=== PATIENT | female | born 1990 | race Caucasian/White ===

== ENCOUNTER 2016-11-03 15:01 | Emergency (ER) | payer BC, MEDICAID ==
[2016-11-03 15:16] VITALS: BP 135/84
--- NOTE | 2016-11-03 16:16 | UC ---
Dental HPI - HPI Summary HPI Summary: 1) Two filling have fallen out of back molars in last couple weeks, pain has been constant since then. No fever or swelling. 2) bilat neck and upper back pain for the last couple weeks. 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 Denies weakness, numbness, or tingling in arms or hands. - History of Current Complaint Chief Complaint: UCUpperExtremity Stated Complaint: NECK & TEETH PAIN Time Seen by Provider: 11/03/16 15:50 Hx Obtained From: Patient Hx Last Menstrual Period: 09/29 ?: No Onset/Duration: Gradual Onset, Lasting Weeks Severity: Mild - Allergies/Home Medications Allergies/Adverse Reactions: Allergies Allergy/AdvReac Type Severity Reaction Status Date / Time Tramadol Allergy See Comment Verified 11/03/16 15:16 Home Medications: Home Medications Acetaminophen [Acetaminophen Extra Stren] 1,000 mg PO 11/03/16 [History] Ibuprofen [Advil] 400 mg PO 11/03/16 [History] PMH/Surg Hx/FS Hx/Imm Hx Endocrine History Of: Denies: Diabetes, Thyroid Disease Cardiovascular History Of: Denies: Cardiac Disorders, Hypertension Respiratory History Of: Reports: Asthma Denies: COPD GI/ History Of: Denies: Ulcer - Surgical History Surgical History: Yes Surgery Procedure, Year, and Place: C section, tonsillectomy - Family History Known Family History: Positive: None, Respiratory Disease - asthma - Social History Occupation: Employed Full-time Lives: With Family Alcohol Use: None Substance Use Type: None Smoking Status (MU): Heavy Every Day Tobacco Smoker Type: Cigarettes Amount Used/How Often: 7-10/day Have You Smoked in the Last Year: Yes - Immunization History Most Recent Influenza Vaccination: 2014 Most Recent Tetanus Shot: UTD Review of Systems Constitutional: Negative Skin: Negative Eyes: Negative ENT: Dental Pain Respiratory: Negative Cardiovascular: Negative Gastrointestinal: Negative Genitourinary: Negative Motor: Negative Neurovascular: Negative Musculoskeletal: Myalgia Neurological: Negative Psychological: Negative All Other Systems Reviewed And Are Negative: Yes Physical Exam Triage Information Reviewed: Yes Appearance: Well-Appearing, No Pain Distress, Obese Vital Signs: Initial Vital Signs Temp 97.9 F 11/03/16 15:11 Pulse 104 11/03/16 15:11 Resp 18 01/20/17 15:11 BP 135/84 11/03/16 15:11 Pulse Ox 100 11/03/16 15:11 Vital Signs Reviewed: Yes Eye Exam: Normal Eyes: Positive: Conjunctiva Clear ENT Exam: Normal ENT: Positive: Normal ENT inspection, Hearing grossly normal, Pharynx normal, TMs normal Dental: Positive: Dental Fracture @ - Molars #18 and 31 tender, missing fillings. No swelling or drainage. Pt does not have 3rd molars Neck: Positive: Supple, No Lymphadenopathy, Tenderness @ - paraspinal muscles Respiratory Exam: Normal Respiratory: Positive: Chest non-tender, Lungs clear, Normal breath sounds, No respiratory distress, No accessory muscle use Cardiovascular Exam: Normal Cardiovascular: Positive: RRR - high 90s, No Murmur Musculoskeletal: Positive: Strength Intact, ROM Intact, No Edema Neurological Exam: Normal Neurological: Positive: Alert, Muscle Tone Normal Psychological Exam: Normal Skin Exam: Normal Dental Complaint Course/Dx - Differential Dx/Diagnosis Provider Diagnoses: myofascial neck and back pain. dental pain #18 and #31 Discharge - Discharge Plan Condition: Stable Disposition: HOME Prescriptions: Acetaminop/Codeine 30 MG TAB* [Tylenol/Codeine 30 MG TAB*] 1 tab PO Q6H PRN #15 tab MDD 4 PRN Reason: Pain Cyclobenzaprine TAB* [Flexeril TAB*] 10 mg PO BEDTIME PRN #10 tab PRN Reason: pain Indomethacin CAP* [Indocin CAP*] 50 mg PO TID PRN #30 cap PRN Reason: Pain Patient Education Materials: Trigger Point Pain (ED), Toothache (ED) Referrals: Orville Cummings MD [Primary Care Provider] - Additional Instructions: Please follow up with your dentist next week as planned. If you develop significant swelling on one side of your face or if you have sudden increase in pain, please call and get me a message (Madina Pete NP) and I will call in an antibiotic for you. If you still have pain in your neck after 2 weeks, see your primary care provider.
== END 2016-11-03 16:25 | disposition home or self-care (01) ==
LOC: UCEAST 15:01
DX: M54.2 Cervicalgia (principal); K08.89 Other specified disorders of teeth and supporting structures; M54.6 Pain in thoracic spine; Z88.6 Allergy status to analgesic agent; F17.210 Nicotine dependence, cigarettes, uncomplicated
CPT/HCPCS: 99211; G0463

== ENCOUNTER 2016-11-09 00:08 | Emergency (ER) | payer BC, MEDICAID ==
[2016-11-09 00:18] VITALS: BP 145/95
[2016-11-09] MEDS ORDERED: oxyCODONE/Acetamin 5/325 MG* TAB PO ONE (01:16)
[2016-11-09] MEDS ORDERED: Ketorolac INJ* 60 MG/2 ML VIAL IM ONE (01:16)
[2016-11-09] MEDS ORDERED: Orphenadrine Citrate IV* 30 MG/ML 2 ML VIAL IM ONE (01:16)
--- NOTE | 2016-11-09 02:13 | ED ---
Renee Locke SooYoung, scribed for Abdullahi Avilez on 11/09/16 at 0115 . Neck Pain - HPI Summary HPI Summary: A 26 y/o F presents to ED with c/o acute on chronic neck pain ongoing for a few weeks. She states the injury was atraumatic, may have occurred while lifting heavy things at work. Pt was seen at [facility] [place] recently and given pain medication, and she saw the chiropractor today. The meds and the chiropractor have not alleviated her pain. Associated sx: sharp bilat temporal [place]; sore throat. Known two broken teeth. Pt is a smoker. - History of Current Complaint Chief Complaint: EDNeckComplaint Stated Complaint: NECK PAIN Time Seen by Provider: 11/09/16 01:04 Hx Obtained From: Patient Hx Last Menstrual Period: 09/29 Mechanism Of Injury: No Known Trauma Timing: Lasting Weeks Onset/Duration: Still Present Severity Currently: Moderate Pain Intensity: 7 Pain Scale Used: 0-10 Numeric Location: Diffuse - neck - Allergies/Home Medications Allergies/Adverse Reactions: Allergies Allergy/AdvReac Type Severity Reaction Status Date / Time Tramadol Allergy See Comment Verified 11/03/16 15:16 PMH/Surg Hx/FS Hx/Imm Hx Previously Healthy: No Endocrine/Hematology History: Denies: Hx Diabetes, Hx Thyroid Disease Cardiovascular History: Denies: Hx Hypertension Respiratory History: Reports: Hx Asthma Denies: Hx Chronic Obstructive Pulmonary Disease (COPD) GI History: Denies: Hx Ulcer Musculoskeletal History: Reports: Hx Back Problems - Surgical History Surgery Procedure, Year, and Place: C section, tonsillectomy Infectious Disease History: Yes Infectious Disease History: Denies: Hx Hepatitis, Hx Human Immunodeficiency Virus (HIV), History Other Infectious Disease, Traveled Outside the [place] in Last 30 Days - Family History Known Family History: Positive: Respiratory Disease - asthma - Social History Occupation: Employed Full-time Lives: Alone Alcohol Use: None Hx Substance Use: No Substance Use Type: Reports: None Hx Tobacco Use: Yes Smoking Status (MU): Heavy Every Day Tobacco Smoker Type: Cigarettes Amount Used/How Often: 7-10/day Have You Smoked in the Last Year: Yes Review of Systems Negative: Fever Positive: Other - pos: neck pain All Other Systems Reviewed And Are Negative: Yes Physical Exam Triage Information Reviewed: Yes Vital Signs On Initial Exam: Initial Vitals Temp Pulse Resp BP Pulse Ox 97.6 F 77 20 145/95 100 11/09/16 00:12 11/09/16 00:12 11/09/16 00:12 11/09/16 00:12 11/09/16 00:12 Vital Signs Reviewed: Yes Appearance: Positive: Well-Appearing, No Pain Distress Skin: Positive: Warm, Skin Color Reflects Adequate Perfusion, Dry Head/Face: Positive: Normal Head/Face Inspection Eyes: Positive: EOMI, ADELINE ENT: Positive: Normal ENT inspection Neck: Positive: Supple, Other: - CERVICAL SPASMS Respiratory/Lung Sounds: Positive: Clear to Auscultation, Breath Sounds Present Cardiovascular: Positive: RRR, Pulses are Symmetrical in both Upper and Lower Extremities Abdomen Description: Positive: Nontender, Soft Musculoskeletal: Positive: Normal, Strength/ROM Intact - 4XFROM Neurological: Positive: Normal, Sensory/Motor Intact, Alert, Oriented to Person Place, Time Diagnostics - Vital Signs Vital Signs Temp Pulse Resp BP Pulse Ox 11/09/16 00:12 97.6 F 77 20 145/95 100 - Laboratory Lab Statement: Any lab studies that have been ordered have been reviewed, and results considered in the medical decision making process. Neck Course/Dx - Course Course Of Treatment: MDM: Pt is a 26 y/o F with ongoing neck pain with no recent injury. XR done by chiropractor today showed no fx. Pt was given analgesics, feels better. Pt will be d/c with Motrin and Percocet and will follow up with PCP within the week. - Diagnoses Provider Diagnoses: Neck pain Discharge - Discharge Plan Condition: Stable Disposition: HOME Prescriptions: Ibuprofen TAB* [Motrin TAB* 600 MG] 600 mg PO Q8H PRN #21 tab PRN Reason: Pain oxyCODONE/Acetamin 5/325 MG* [Percocet 5/325 TAB*] 1 tab PO Q8H PRN #12 tab MDD 3 PRN Reason: Pain Patient Education Materials: Ibuprofen (By mouth), Oxycodone/Acetaminophen (By mouth), Neck Pain (ED) Referrals: Orville Cummings MD [Primary Care Provider] - Additional Instructions: Follow up with your primary care provider within the week. Please return to ED if your symptoms worsen or you experience new symptoms. The documentation as recorded by the Renee cartwright SooYoung accurately reflects the service I personally performed and the decisions made by me, Abdullahi Avilez.
== END 2016-11-09 02:50 | disposition home or self-care (01) ==
LOC: ED 00:08
DX: M54.2 Cervicalgia (principal); F17.210 Nicotine dependence, cigarettes, uncomplicated; G89.29 Other chronic pain
CPT/HCPCS: 96372; 99282; A9270-GY; J1885; J2360

== ENCOUNTER 2016-11-15 16:40 | Emergency (ER) | payer BC, MEDICAID ==
--- NOTE | 2016-11-15 16:52 | UC ---
Neck Pain HPI - HPI Summary HPI Summary: acute on chronic cervical neck pain had x-ray at chiropractors office today --- noted cervical spine straightening, Also has cough, wheeze body aches chills for 3 days - History of Current Complaint Chief Complaint: UCGeneralIllness Stated Complaint: NECK PAIN, SORE THROAT Time Seen by Provider: 11/15/16 17:00 Hx Obtained From: Patient Hx Last Menstrual Period: 09/29 ?: No Onset/Duration Of Injury/Symptoms: Weeks - cervical pain and 3 days of flu like sx Mechanism Of Injury: No Known Trauma Timing: Constant Onset/Duration: Gradual Onset, Lasting Days Severity: Moderate Pain Intensity: 6 Pain Scale Used: 0-10 Numeric Location: Diffuse - body aches and discreted cervical spins pain Character: Aching, Stiff Aggravating Factors: Nothing Alleviating Factors: Other: - chiropractor treatments, Heat Associated Signs & Symptoms: Positive: Fever, Headache - Allergies/Home Medications Allergies/Adverse Reactions: Allergies Allergy/AdvReac Type Severity Reaction Status Date / Time Tramadol Allergy See Comment Verified 11/15/16 16:47 PMH/Surg Hx/FS Hx/Imm Hx Previously Healthy: No Endocrine History Of: Denies: Diabetes, Thyroid Disease Cardiovascular History Of: Denies: Cardiac Disorders, Hypertension Respiratory History Of: Reports: Asthma Denies: COPD GI/ History Of: Denies: Ulcer - Surgical History Surgical History: Yes Surgery Procedure, Year, and Place: C section, tonsillectomy - Family History Known Family History: Positive: None, Respiratory Disease - asthma - Social History Occupation: Employed Part-time - quality control associate Lives: With Family Alcohol Use: None Substance Use Type: None Smoking Status (MU): Heavy Every Day Tobacco Smoker Type: Cigarettes Amount Used/How Often: 7-10/day Have You Smoked in the Last Year: Yes Cessation Counseling: Counseled 3+Min - 10 Min - Immunization History Most Recent Influenza Vaccination: 2014 Most Recent Tetanus Shot: UTD Review Of Systems Constitutional: Positive: Chills, Fatigue Skin: Positive: Negative Eyes: Positive: Negative ENT: Positive: Sore Throat, Ear Ache, Nasal Discharge Respiratory: Positive: Cough Cardiovascular: Positive: Negative Gastrointestinal: Positive: Negative Genitourinary: Positive: Negative Musculoskeletal: Positive: Arthralgia, Myalgia Neurological: Positive: Headache Psychological: Positive: Negative All Other Systems Reviewed And Are Negative: Yes Physical Exam Triage Information Reviewed: Yes Appearance: Ill-Appearing - mild, Pain Distress - mild, Obese Vital Signs Reviewed: Yes Eye Exam: Normal Eyes: Positive: Conjunctiva Clear ENT Exam: Normal ENT: Positive: Normal ENT inspection, Hearing grossly normal, Pharynx normal, TMs normal. Negative: Nasal congestion, Nasal drainage, Tonsillar swelling, Tonsillar exudate, Trismus, Muffled/hoarse voice Neck exam: Normal Neck: Positive: Supple, Nontender, No Lymphadenopathy Respiratory Exam: Other Respiratory: Positive: Chest non-tender, No respiratory distress, No accessory muscle use, Wheezing Cardiovascular Exam: Normal Cardiovascular: Positive: RRR, No Murmur, Pulses Normal, Brisk Capillary Refill Musculoskeletal Exam: Normal Musculoskeletal: Positive: Strength Intact, ROM Intact, No Edema Neurological Exam: Normal Neurological: Positive: Alert, Muscle Tone Normal Psychological Exam: Normal Skin Exam: Normal Diagnostics - Laboratory Diagnostic Studies Completed/Ordered: Influenza B(+) Re-Evaluation - Re-Evaluation First Eval Change: Improved - wheezing resolved after neb Neck Pain Course/Dx - Course Course Of Treatment: Tamiflu, albuterol, prednisone, percocet, Ibuprofen and flexeril for neck pain, nicotine cesation information - Differential Dx/Diagnosis Differential Dx/HQI/PQRI: Arthritis, Meningitis, Sprain, Strain, Other - Cervial muscle spasm, Influenza, viral illness Provider Diagnoses: Cervical Muscle strain, Influenza B, Nicotine Dependant Discharge - Discharge Plan Condition: Stable Disposition: HOME Prescriptions: Albuterol HFA INHALER* [Ventolin HFA Inhaler*] 2 puff INH Q6H PRN #1 mdi PRN Reason: cough/wheeze Cyclobenzaprine TAB* [Flexeril TAB*] 10 mg PO TID PRN #15 tab PRN Reason: muscle pain Oseltamivir Phosphate [Tamiflu] 75 mg PO BID #10 cap oxyCODONE/Acetamin 5/325 MG* [Percocet 5/325 TAB*] 1 tab PO Q6H PRN #12 tab MDD 4 PRN Reason: pain predniSONE TAB* [Deltasone TAB*] 10 mg PO DAILY #20 tab Patient Education Materials: How to Stop Smoking (ED), Cigarette Smoking and Your Health (GEN), How to Use a Metered-Dose Inhaler (ED), Influenza (ED), Bronchospasm (ED) Forms: *Work Release Referrals: Orville Cummings MD [Primary Care Provider] - If Needed
[2016-11-15 16:58] VITALS: BP 161/91
[2016-11-15] MEDS ORDERED: predniSONE TAB* 20 MG PO ONE (17:08)
[2016-11-15] MEDS ORDERED: Ipratropium 0.5MG/2.5ML NEB* 0.5 MG/2.5 ML NEB.SOLN INH ONE (17:08)
[2016-11-15] MEDS ORDERED: Albuterol 2.5 MG/3 ML NEB.SOL* (0.083%) INH ONE (17:08)
== END 2016-11-15 17:55 | disposition home or self-care (01) ==
LOC: UCEAST 16:40
DX: S16.1XXA Strain of muscle, fascia and tendon at neck level, initial encounter (principal); X58.XXXA Exposure to other specified factors, initial encounter; Y93.9 Activity, unspecified; Y92.9 Unspecified place or not applicable; J11.1 Influenza due to unidentified influenza virus with other respiratory manifestations; Z88.5 Allergy status to narcotic agent; F17.210 Nicotine dependence, cigarettes, uncomplicated
CPT/HCPCS: 87502; 87651; 99212; G0463; J7512; J7644

== ENCOUNTER 2017-06-10 06:09 | Emergency (ER) | payer BC, MEDICAID ==
[2017-06-10 08:12] LABS: Hematocrit 40 % (35-47); Hemoglobin 13.6 g/dl (12.0-16.0); Mean Corpuscular HGB Conc 34 g/dl (31-36); Mean Corpuscular Hemoglobin 29 pg (27-31); Mean Corpuscular Volume 86 fL (80-97); Mean Platelet Volume 8 um3 (7.4-10.4); Red Blood Count 4.65 10^6/ul (4.0-5.4); Red Cell Distribution Width 13 % (10.5-15); White Blood Count 7.1 10^3/ul (3.5-10.8)
[2017-06-10 08:19] LABS: Urine Bilirubin Negative (Negative); Urine Glucose Negative (Negative); Urine Nitrite Negative (Negative)
[2017-06-10 08:30] LABS: Albumin 4.2 g/dL (3.2-5.2); BUN/Creatinine Ratio 12.3 (8-20); Calcium 9.3 mg/dL (8.6-10.3); EGFR African American 167.6 (>60); EGFR Non-African American 130.3 (>60); Globulin 2.5 g/dL (2-4); Potassium 3.6 mmol/L (3.5-5.0); Total Bilirubin 0.5 mg/dL (0.2-1.0); Total Protein 6.7 g/dL (6.4-8.9)
--- NOTE | 2017-06-10 10:12 | RAD ---
HISTORY: , right adnexal pain COMPARISONS: None relevant TECHNIQUE: Multiple transverse and longitudinal ultrasound images were obtained of the pelvis using grayscale and color Doppler imaging using the endovaginal transducer. FINDINGS: UTERUS: The uterus is normal in shape, size, contour, and echotexture. GESTATION: A gestational sac with a yolk sac is identified. No pole is identified.. The mean sac diameter measures 1.65 cm for a gestational age of 6 weeks and 4 days. The SAMMY is January 30, 2013. cardiac motion is not detected. Gross movement is no identified. anatomy cannot be assessed secondary to early dates. The amniotic fluid is qualitatively normal. There are no retroplacental fluid collections. CUL-DE-SAC: There is no free fluid within the cul-de-sac. RIGHT OVARY: The right ovary measures 2.6 x 3.7 x 3.4 cm. The corpus luteum is identified LEFT OVARY: The left ovary measures 1.5 x 1.9 x 3.1 cm. BLADDER: The bladder is not well visualized. IMPRESSION: A GESTATIONAL SAC IS IDENTIFIED WITHOUT POLE, MOST CONSISTENT WITH EARLY INTRAUTERINE . THE GESTATIONAL AGE IS 6 WEEKS AND 4 DAYS BY MEAN SAC DIAMETER. RECOMMEND CORRELATION WITH SERIAL BETA-HCG LEVELS AND FOLLOW-UP IMAGING.
[2017-06-10 10:53] LABS: C Reactive Protein 5.13 mg/L (< 5.00)
[2017-06-10 11:23] LABS: Erythrocyte Sed Rate 11 mm/Hr (0-14)
[2017-06-10 13:22] VITALS: BP 113/69
--- NOTE | 2017-06-10 14:41 | CONSULT ---
Consult Consult: I preformed pelvic examination. cervix was closed, non tender. no chandelier sign. normal tissue color and discharge. no sign of abnormal discharge, bleeding or odor. Bimanual exam: somewhat tender on right side. otherwise normal. cultures obtained, pending results. will not treat at this time.
--- NOTE | 2017-06-16 21:48 | ED ---
Savita Locke Alfonso, scribed for Viktor Espinoza MD on 06/10/17 at 0719 . Abdominal Pain/Female - HPI Summary HPI Summary: This patient is a 26 year old F presenting to [facility] accompanied by mother with a chief complaint of RLQ abdominal pain which began approximately 2 weeks ago. The CC is described as a constant, sharp, and throbbing. The patient rates the pain 3/10 in severity. Symptoms aggravated by nothing. Symptoms alleviated by nothing. Patient denies dysuria, hematuria, vaginal discharge, and vaginal bleeding. She reports a positive home test from a few weeks ago. She has an OBGYN follow up scheduled for tomorrow. She reports having a miscarriage a few months ago early into that . LMP 05/03/17. A3. Her first child is currently 6 years ago. She is not on vitamins. Tobacco abuse disorder. FHx of tubal . She denies PSHx of appendectomy. PMHx of C- section, chronic neck, and back pain. - History of Current Complaint Hx Obtained From: Patient Hx Last Menstrual Period: 05/03/17 ?: Yes Onset/Duration: Sudden Onset, Lasting Weeks - approx 2, Still Present Timing: Constant Severity Initially: Mild Severity Currently: Mild Pain Intensity: 3 Pain Scale Used: 0-10 Numeric Location: Discrete At: RLQ Character: Sharp, Other: - Throbbing. Aggravating Factor(s): Nothing Alleviating Factor(s): Nothing Associated Signs and Symptoms: Positive: Negative <Viktor Espinoza - Last Filed: 06/10/17 13:03> <Sasha Cullen - Last Filed: 06/10/17 14:38> - History of Current Complaint Chief Complaint: EDAbdPain Stated Complaint: RT SIDE ABD PAIN/ Allergies/Adverse Reactions: Allergies Allergy/AdvReac Type Severity Reaction Status Date / Time Tramadol Allergy See Comment Verified 06/10/17 06:14 PMH/Surg Hx/FS Hx/Imm Hx Endocrine/Hematology History: Denies: Hx Diabetes, Hx Thyroid Disease Cardiovascular History: Denies: Hx Hypertension Respiratory History: Reports: Hx Asthma Denies: Hx Chronic Obstructive Pulmonary Disease (COPD) GI History: Denies: Hx Ulcer History: Reports: Other Problems/Disorders - Musculoskeletal History: Reports: Hx Back Problems - Surgical History Surgery Procedure, Year, and Place: C section, tonsillectomy - Immunization History Date of Tetanus Vaccine: utd Date of Influenza Vaccine: utd Infectious Disease History: No Infectious Disease History: Denies: Hx Hepatitis, Hx Human Immunodeficiency Virus (HIV), History Other Infectious Disease, Traveled Outside the [place] in Last 30 Days - Family History Known Family History: Positive: Respiratory Disease - asthma, Other - tubal - Social History Alcohol Use: None Hx Substance Use: No Substance Use Type: Reports: None Hx Tobacco Use: Yes Smoking Status (MU): Heavy Every Day Tobacco Smoker Type: Cigarettes Amount Used/How Often: 7-10/day Have You Smoked in the Last Year: Yes <Viktor Espinoza - Last Filed: 06/10/17 13:03> Review of Systems Negative: Fever, Chills Negative: Erythema Negative: Sore Throat Negative: Chest Pain Negative: Shortness Of Breath, Cough Positive: Abdominal Pain - RLQ. Negative: Vomiting, Nausea Positive: other - Negative vaginal discharge and vaginal bleeding.. Negative: dysuria, hematuria Negative: Myalgia, Edema Negative: Rash Neurological: Other - Negative dizziness All Other Systems Reviewed And Are Negative: Yes <Viktor Espinoza - Last Filed: 06/10/17 13:03> Physical Exam Triage Information Reviewed: Yes Vital Signs On Initial Exam: Initial Vitals Temp Pulse Resp BP Pulse Ox 98.4 F 93 18 122/84 100 06/10/17 06:11 06/10/17 06:11 06/10/17 06:11 06/10/17 06:11 06/10/17 06:11 Vital Signs Reviewed: Yes Appearance: Positive: Well-Appearing, No Pain Distress, Well-Nourished Skin: Positive: Warm, Dry Head/Face: Positive: Normal Head/Face Inspection Eyes: Positive: Conjunctiva Clear Neck: Positive: Other: - Musculoskeletal ROM normal neck. (-) JVD, (-) Stridor, (-) Tracheal deviation, (-) Cervical adenopathy Respiratory/Lung Sounds: Positive: Other - Effort normal. (-) Respiratory distress, (-) Wheezes, (-) Rales Cardiovascular: Positive: Other - Rhythm regular, rate normal, Heart sounds normal; Intact distal pulses; The pedal pulses are 2+ and symmetric. Radial pulses are 2+ and symmetric. (-) Murmur Abdomen Description: Positive: Soft, Other: - Right adnexal tenderness. No Rebound. Negative: Distended, Guarding Musculoskeletal: Negative: Edema Left, Edema Right Neurological: Positive: Alert, Oriented to Person Place, Time Psychiatric: Positive: Affect/Mood Appropriate - Ashlyn Coma Scale Coma Scale Total: 15 <Viktor Espinoza - Last Filed: 06/10/17 13:03> Vital Signs On Initial Exam: Initial Vitals Temp Pulse Resp BP Pulse Ox 98.4 F 93 18 122/84 100 06/10/17 06:11 06/10/17 06:11 06/10/17 06:11 06/10/17 06:11 06/10/17 06:11 <Sasha Cullen - Last Filed: 06/10/17 14:38> Diagnostics - Vital Signs Vital Signs Temp Pulse Resp BP Pulse Ox 06/10/17 06:15 98.4 F 93 18 122/84 100 06/10/17 06:11 98.4 F 93 18 122/84 100 - Laboratory Result Diagrams: 06/10/17 07:57 06/10/17 07:57 Lab Statement: Any lab studies that have been ordered have been reviewed, and results considered in the medical decision making process. - Additional Comments Diagnostic Additional Comments: Transvaginal US reveals, per radiologist, A GESTATIONAL SAC IS IDENTIFIED WITHOUT POLE, MOST CONSISTENT WITH EARLY INTRAUTERINE . THE GESTATIONAL AGE IS 6 WEEKS AND 4 DAYS BY MEAN SAC DIAMETER. RECOMMEND CORRELATION WITH SERIAL BETA-HCG LEVELS AND FOLLOW-UP IMAGING. ED physician has reviewed this radiology report and agrees. <Eighty FourViktor - Last Filed: 06/10/17 13:03> - Vital Signs Vital Signs Temp Pulse Resp BP Pulse Ox 06/10/17 13:23 99.6 F 72 18 113/69 06/10/17 13:11 113/69 06/10/17 10:52 75 97 06/10/17 10:09 76 98 06/10/17 09:30 63 88/51 96 06/10/17 09:28 69 92/54 96 06/10/17 09:00 65 94 06/10/17 08:30 59 85/43 96 06/10/17 08:00 76 106/69 99 06/10/17 07:30 57 95/60 97 06/10/17 07:18 75 100 06/10/17 07:17 124/72 06/10/17 06:15 98.4 F 93 18 122/84 100 06/10/17 06:11 98.4 F 93 18 122/84 100 - Laboratory Lab Results: Lab Results 06/10/17 06/10/17 06/10/17 Range/Units 07:57 07:57 07:57 WBC 7.1 (3.5-10.8) 10^3/ul RBC 4.65 (4.0-5.4) 10^6/ul Hgb 13.6 (12.0-16.0) g/dl Hct 40 (35-47) % MCV 86 (80-97) fL MCH 29 (27-31) pg MCHC 34 (31-36) g/dl RDW 13 (10.5-15) % Plt Count 193 (150-450) 10^3/ul MPV 8 (7.4-10.4) um3 ESR 11 (0-14) mm/Hr Sodium 136 (133-145) mmol/L Potassium 3.6 (3.5-5.0) mmol/L Chloride 105 (101-111) mmol/L Carbon Dioxide 25 (22-32) mmol/L Anion Gap 6 (2-11) mmol/L BUN 7 (6-24) mg/dL Creatinine 0.57 (0.51-0.95) mg/dL Est GFR ( Amer) 167.6 (>60) Est GFR (Non-Af Amer) 130.3 (>60) BUN/Creatinine Ratio 12.3 (8-20) Glucose 97 (70-100) mg/dL Calcium 9.3 (8.6-10.3) mg/dL Total Bilirubin 0.50 (0.2-1.0) mg/dL AST 14 (13-39) U/L ALT 15 (7-52) U/L Alkaline Phosphatase 48 (34-104) U/L C-Reactive Protein 5.13 H (< 5.00) mg/L Total Protein 6.7 (6.4-8.9) g/dL Albumin 4.2 (3.2-5.2) g/dL Globulin 2.5 (2-4) g/dL Albumin/Globulin Ratio 1.7 (1-3) Beta HCG, Quant 56548.00 mIU/mL Urine Color Yellow Urine Appearance Clear Urine pH 6.0 (5-9) Ur Specific [place] 1.009 L (1.010-1.030) Urine Protein Negative (Negative) Urine Ketones Negative (Negative) Urine Blood Negative (Negative) Urine Nitrate Negative (Negative) Urine Bilirubin Negative (Negative) Urine Urobilinogen Negative (Negative) Ur Leukocyte Esterase Negative (Negative) Urine Glucose Negative (Negative) Blood Type Antibody Screen 06/10/17 Range/Units 07:57 WBC (3.5-10.8) 10^3/ul RBC (4.0-5.4) 10^6/ul Hgb (12.0-16.0) g/dl Hct (35-47) % MCV (80-97) fL MCH (27-31) pg MCHC (31-36) g/dl RDW (10.5-15) % Plt Count (150-450) 10^3/ul MPV (7.4-10.4) um3 ESR (0-14) mm/Hr Sodium (133-145) mmol/L Potassium (3.5-5.0) mmol/L Chloride (101-111) mmol/L Carbon Dioxide (22-32) mmol/L Anion Gap (2-11) mmol/L BUN (6-24) mg/dL Creatinine (0.51-0.95) mg/dL Est GFR ( Amer) (>60) Est GFR (Non-Af Amer) (>60) BUN/Creatinine Ratio (8-20) Glucose (70-100) mg/dL Calcium (8.6-10.3) mg/dL Total Bilirubin (0.2-1.0) mg/dL AST (13-39) U/L ALT (7-52) U/L Alkaline Phosphatase (34-104) U/L C-Reactive Protein (< 5.00) mg/L Total Protein (6.4-8.9) g/dL Albumin (3.2-5.2) g/dL Globulin (2-4) g/dL Albumin/Globulin Ratio (1-3) Beta HCG, Quant mIU/mL Urine Color Urine Appearance Urine pH (5-9) Ur Specific [place] (1.010-1.030) Urine Protein (Negative) Urine Ketones (Negative) Urine Blood (Negative) Urine Nitrate (Negative) Urine Bilirubin (Negative) Urine Urobilinogen (Negative) Ur Leukocyte Esterase (Negative) Urine Glucose (Negative) Blood Type A Positive Antibody Screen Negative Result Diagrams: 06/10/17 07:57 06/10/17 07:57 Lab Statement: Any lab studies that have been ordered have been reviewed, and results considered in the medical decision making process. <Sasha Cullen - Last Filed: 06/10/17 14:38> Abdominal Pain Fem Course/Dx - Course Course Of Treatment: This patient is a 26 year old F presenting to [facility] accompanied by mother with a chief complaint of RLQ abdominal pain which began approximately 2 weeks ago. The CC is described as a constant, sharp, and throbbing. The patient rates the pain 3/10 in severity. Symptoms aggravated by nothing. Symptoms alleviated by nothing. Patient denies dysuria, hematuria, vaginal discharge, and vaginal bleeding. She reports a positive home test from a few weeks ago. She has an OBGYN follow up scheduled for tomorrow. She reports having a miscarriage a few months ago early into that . LMP 05/03/17. A3. Her first child is currently 6 years ago. She is not on vitamins. Tobacco abuse disorder. FHx of tubal . She denies PSHx of appendectomy. PMHx of , chronic neck, and back pain. Transvaginal US reveals A GESTATIONAL SAC IS IDENTIFIED WITHOUT POLE, MOST CONSISTENT WITH EARLY INTRAUTERINE . THE GESTATIONAL AGE IS 6 WEEKS AND 4 DAYS BY MEAN SAC DIAMETER. RECOMMEND CORRELATION WITH SERIAL BETA- HCG LEVELS AND FOLLOW-UP IMAGING. ED physician has reviewed this radiology report and agrees. Patient will be discharged with vitamins and follow up from PCP. The patient is agreeable with this plan. <Viktor Espinoza - Last Filed: 06/10/17 13:03> <Sasha Cullen - Last Filed: 06/10/17 14:38> - Diagnoses Provider Diagnoses: First trimester , Ovarian cyst, right, Abdominal pain during Discharge <Viktor Espinoza - Last Filed: 06/10/17 13:03> <Sasha Cullen - Last Filed: 06/10/17 14:38> - Discharge Plan Condition: Stable Disposition: HOME Prescriptions: Vitamin TAB* 1 tab PO DAILY #30 tab Patient Education Materials: Ovarian Cyst (ED), First Trimester (ED) , Abdominal Pain in (ED) Forms: *Work Release Referrals: Orville Cummings MD [Primary Care Provider] - Additional Instructions: RETURN TO THE EMERGENCY DEPARTMENT FOR CHANGING OR WORSENING SYMPTOMS The documentation as recorded by the Savita cartwright Alfonso accurately reflects the service I personally performed and the decisions made by Olga alexander Jerry, MD.
== END 2017-06-10 13:23 | disposition home or self-care (01) ==
LOC: ED 06:09
DX: O34.81 Maternal care for other abnormalities of pelvic organs, first trimester (principal); O99.331 Smoking (tobacco) complicating pregnancy, first trimester; R10.31 Right lower quadrant pain; O26.891 Other specified pregnancy related conditions, first trimester; Z3A.00 Weeks of gestation of pregnancy not specified; N83.201 Unspecified ovarian cyst, right side
CPT/HCPCS: 36415; 76817; 80053; 81003; 84702; 85027; 85652; 86140; 86850; 86900; 86901; 87480; 87491; 87510; 87591; 87661; 99283

== ENCOUNTER 2018-08-28 16:20 | Emergency (ER) | payer BC, MEDICAID ==
[2018-08-28 16:30] VITALS: BP 132/90
--- NOTE | 2018-08-28 16:55 | ED ---
Respiratory - HPI Summary HPI Summary: Ms. Dobbs has had URI symptoms of sore throat, nasal congestion and cough for a couple of days. She has a history of asthma but does not take medicine at home stating that it usually gets worse when he gets cold. She has had no fever. - History of Current Complaint Chief Complaint: UCRespiratory Stated Complaint: COUGH,CONGESTED Time Seen by Provider: 08/28/18 16:41 Hx Obtained From: Patient Onset/Duration: Gradual Onset Initial Severity: Moderate Current Severity: Moderate Pain Intensity: 4 Character: Cough (Productive) Sputum Amount: Small Sputum Color: Clear Aggravating Factor(s): Nothing Alleviating Factor(s): Nothing Associated Signs and Symptoms: Nasal Congestion - ST - Allergy/Home Medications Allergies/Adverse Reactions: Allergies Allergy/AdvReac Type Severity Reaction Status Date / Time MS Tramadol [Tramadol] Allergy See Comment Verified 08/28/18 16:30 PMH/Surg Hx/FS Hx/Imm Hx Previously Healthy: Yes Endocrine/Hematology History: Denies: Hx Diabetes, Hx Thyroid Disease Cardiovascular History: Denies: Hx Hypertension Respiratory History: Reports: Hx Asthma Denies: Hx Chronic Obstructive Pulmonary Disease (COPD) GI History: Denies: Hx Ulcer History: Reports: Other Problems/Disorders - Musculoskeletal History: Reports: Hx Back Problems - Surgical History Surgery Procedure, Year, and Place: C section, tonsillectomy - Immunization History Date of Tetanus Vaccine: utd Date of Influenza Vaccine: utd Infectious Disease History: No Infectious Disease History: Denies: Hx Hepatitis, Hx Human Immunodeficiency Virus (HIV), History Other Infectious Disease, Traveled Outside the [place] in Last 30 Days - Family History Known Family History: Positive: None, Respiratory Disease - asthma, Other - tubal - Social History Alcohol Use: Rare Hx Substance Use: No Substance Use Type: Reports: None Hx Tobacco Use: Yes Smoking Status (MU): Heavy Every Day Tobacco Smoker Type: Cigarettes Amount Used/How Often: 7-10/day Have You Smoked in the Last Year: Yes Review of Systems Positive: Chills Eyes: Negative Positive: Sore Throat, Nasal Discharge Cardiovascular: Negative Respiratory: Negative Gastrointestinal: Negative All Other Systems Reviewed And Are Negative: No Physical Exam - Summary Physical Exam Summary: She is nontoxic in appearance and her vital signs are stable. Triage Information Reviewed: Yes Vital Signs On Initial Exam: Initial Vitals Temp Pulse Resp BP Pulse Ox 98.2 F 101 18 132/90 100 08/28/18 16:26 08/28/18 16:26 08/28/18 16:26 08/28/18 16:26 08/28/18 16:26 Completion Of Physical Exam Limited Due To: Dementia Appearance: Positive: Well-Appearing, No Pain Distress Skin: Positive: Warm, Skin Color Reflects Adequate Perfusion ENT: Positive: Pharynx normal, Nasal congestion, TMs normal Neck: Positive: Supple, Nontender, No Lymphadenopathy Respiratory/Lung Sounds: Positive: Clear to Auscultation Cardiovascular: Positive: Normal Neurological: Positive: Normal Diagnostics - Vital Signs Vital Signs Temp Pulse Resp BP Pulse Ox 08/28/18 16:26 98.2 F 101 18 132/90 100 - Laboratory Lab Statement: Any lab studies that have been ordered have been reviewed, and results considered in the medical decision making process. Disposition - Course Course Of Treatment: She has a viral URI and I will treat her symptomatically with guaifenesin and codeine and an inhaler. - Diagnoses Provider Diagnoses: URI (upper respiratory infection) Discharge - Sign-Out/Discharge Documenting (check all that apply): Patient Departure All imaging exams completed and their final reports reviewed: Yes - Discharge Plan Condition: Stable Disposition: HOME Patient Education Materials: Upper Respiratory Infection (ED) Referrals: Orville Cummings MD [Primary Care Provider] - - Billing Disposition and Condition Condition: STABLE Disposition: Home
== END 2018-08-28 17:11 | disposition home or self-care (01) ==
LOC: UCEAST 16:20
DX: J06.9 Acute upper respiratory infection, unspecified (principal); Z88.8 Allergy status to other drugs, medicaments and biological substances; F17.210 Nicotine dependence, cigarettes, uncomplicated
CPT/HCPCS: 99212; G0463

== ENCOUNTER 2018-10-10 20:04 | Emergency (ER) | payer MEDICAID ==
[2018-10-10] MEDS ORDERED: Metoclopramide TAB* 10 MG PO ONE (20:46)
[2018-10-10] MEDS ORDERED: Acetaminophen TAB* 325 MG PO ONE (20:46)
--- NOTE | 2018-10-10 21:55 | ED ---
- HPI Summary HPI Summary: 28 year old female at about 6 weeks presents with RLQ pain and vaginal bleeding since yesterday. She states the pain is a crampy pain in her right lower quadrant. She notes nausea but no vomiting. She admits to feeling feverish. No urinary symptoms. States she was spotting yesterday but that has since resolved. No abnormal vaginal discharge. No cough or recent illness. No diarrhea or constipation. - History of Current Complaint Chief Complaint: EDOBProblems Stated Complaint: 6 WKS PREG/RT SIDE PAIN Time Seen by Provider: 10/10/18 20:37 Pain Intensity: 3 - Assessment Hx Now: No - Allergies/Home Medications Allergies/Adverse Reactions: Allergies Allergy/AdvReac Type Severity Reaction Status Date / Time tramadol Allergy See Comment Verified 10/10/18 20:21 PMH/Surg Hx/FS Hx/Imm Hx Endocrine/Hematology History: Denies: Hx Diabetes, Hx Thyroid Disease Cardiovascular History: Denies: Hx Hypertension Respiratory History: Reports: Hx Asthma Denies: Hx Chronic Obstructive Pulmonary Disease (COPD) GI History: Denies: Hx Ulcer History: Reports: Other Problems/Disorders - Musculoskeletal History: Reports: Hx Back Problems - Surgical History Surgery Procedure, Year, and Place: C section, tonsillectomy - Immunization History Date of Tetanus Vaccine: utd Date of Influenza Vaccine: utd Infectious Disease History: No Infectious Disease History: Denies: Hx Hepatitis, Hx Human Immunodeficiency Virus (HIV), History Other Infectious Disease, Traveled Outside the [place] in Last 30 Days - Family History Known Family History: Positive: None, Respiratory Disease - asthma, Other - tubal - Social History Alcohol Use: Rare Hx Substance Use: No Substance Use Type: Reports: None Hx Tobacco Use: Yes Smoking Status (MU): Heavy Every Day Tobacco Smoker Type: Cigarettes Amount Used/How Often: 7-10/day Have You Smoked in the Last Year: Yes Review of Systems Negative: Fever Negative: Chest Pain Negative: Shortness Of Breath Positive: Abdominal Pain, Other - vaginal bleeding All Other Systems Reviewed And Are Negative: Yes Physical Exam - Physical Exam Triage Information Reviewed: Yes Vital Signs Reviewed: Yes Appearance: Positive: Well-Appearing Skin: Positive: Warm, Dry Head/Face: Positive: Normal Head/Face Inspection Eyes: Positive: Normal, Conjunctiva Clear ENT: Positive: Pharynx normal Respiratory/Lung Sounds: Positive: Clear to Auscultation, Breath Sounds Present Cardiovascular: Positive: Normal, RRR Abdomen Description: Positive: Soft, Other: - tenderness in RLQ Bowel Sounds: Positive: Present Musculoskeletal: Positive: Normal Neurological: Positive: Normal Psychiatric: Positive: Normal Diagnostics - Vital Signs Vital Signs Temp Pulse Resp BP Pulse Ox 10/10/18 20:19 98.6 F 103 16 151/82 99 - Laboratory Result Diagrams: 10/10/18 21:54 10/10/18 21:54 Lab Statement: Any lab studies that have been ordered have been reviewed, and results considered in the medical decision making process. - Ultrasound No standard instances Ultrasound Interpretation Completed By: Radiologist Summary of Ultrasound Findings: IMPRESSION: Viable intrauterine with an ultrasound age of 6 weeks 2 days which. correlates to an SAMMY of 06/03/2019 which will be used for the clinical dates. Course/Dx - Course Course Of Treatment: 28 year old female at about 6 weeks presents with RLQ pain and vaginal bleeding since yesterday. She states the pain is a crampy pain in her right lower quadrant. She notes nausea but no vomiting. She admits to feeling feverish. No urinary symptoms. States she was spotting yesterday but that has since resolved. No abnormal vaginal discharge. No cough or recent illness. No diarrhea or constipation. On exam tenderness right lower quadrant. blood type A+. hcg 19292. u/s shows intraurterine . [facility] will give reglan for nausea. patient understand and agrees with plan. - Differential Diagnosis/HQI/PQRI: Threatened , Ectopic , Intrauterine , UTI - Diagnoses Provider Diagnoses: Intrauterine Discharge - Sign-Out/Discharge Documenting (check all that apply): Patient Departure - Discharge Plan Condition: Good Disposition: HOME Prescriptions: Metoclopramide TAB* [Reglan TAB*] 5 mg PO Q6H PRN #20 tab PRN Reason: Nausea Patient Education Materials: First Trimester (ED) Referrals: Orville Cummings MD [Primary Care Provider] - Additional Instructions: take Tylenol as needed for pain every 6 hours take Reglan every 6 hours as needed for nausea [facility], follow up earlier if bleeding continues Return to ED if develop any new or worsening symptoms - Billing Disposition and Condition Condition: GOOD Disposition: Home
[2018-10-10 22:08] LABS: ABS Basophils 0.1 10^3/ul (0-0.2); ABS Eosinophils 0.3 10^3/ul (0-0.6); ABS Lymphocytes 2.5 10^3/ul (1.0-4.8); ABS Monocytes 0.7 10^3/ul (0-0.8); ABS Neutrophils 5.2 10^3/ul (1.5-7.7); ABS Nucleated RBC 0 10^3/ul; Eosinophil % 3.3 %; Hematocrit 38 % (35-47); Hemoglobin 12.8 g/dl (12.0-16.0); Lymphocyte % 28.9 %; Mean Corpuscular HGB Conc 34 g/dl (31-36); Mean Corpuscular Hemoglobin 29 pg (27-31); Mean Corpuscular Volume 86 fL (80-97); Nucleated Red Blood Cells % 0; Platelet Count 202 10^3/ul (150-450); Red Blood Count 4.46 10^6/ul (4.00-5.40); Red Cell Distribution Width 13 % (10.5-15); White Blood Count 8.7 10^3/ul (3.5-10.8)
[2018-10-10 22:25] LABS: Albumin 3.9 g/dL (3.2-5.2); Albumin/Globulin Ratio 1.5 (1-3); BUN/Creatinine Ratio 15.5 (8-20); Calcium 9.2 mg/dL (8.6-10.3); EGFR Non-African American 125.7 (>60); Globulin 2.6 g/dL (2-4); Potassium 3.4 mmol/L (3.5-5.0); Total Bilirubin 0.3 mg/dL (0.2-1.0); Total Protein 6.5 g/dL (6.4-8.9)
[2018-10-10 23:43] VITALS: BP 138/74
== END 2018-10-10 23:43 | disposition home or self-care (01) ==
LOC: ED 20:04
DX: O26.891 Other specified pregnancy related conditions, first trimester (principal); R10.31 Right lower quadrant pain; Z3A.01 Less than 8 weeks gestation of pregnancy; Z88.5 Allergy status to narcotic agent; F17.210 Nicotine dependence, cigarettes, uncomplicated
CPT/HCPCS: 36415; 76817; 80053; 84702; 85025; 86900; 86901; 99282; A9270-GY